=== PATIENT | female | born 1950 | race Caucasian/White ===

== ENCOUNTER → 2021-02-18 | Outpatient (CLI) | payer MEDICARE | END | disposition home or self-care (01) | LOC: SLP 19:55 → EDBD 03-10 20:30 | PROVIDERS: ATTEND Internal Medicine | DX: G47.33 Obstructive sleep apnea (adult) (pediatric) (principal); I10 Essential (primary) hypertension; E66.9 Obesity, unspecified | CPT/HCPCS: 95810 ==